=== PATIENT | female | born 1965 | race Caucasian/White ===

== ENCOUNTER → 2018-01-17 10:40 | Outpatient (POV) | payer SELFPAY ==
[2018-01-17 11:10] VITALS: BP 132/96; PULSE 91; RESP 18
--- NOTE | 2018-01-17 12:48 | HMH.PMCON ---
Assessment and Plan (1) Sacroiliitis Current visit: Yes Status: Chronic Category: Medical Code(s): M46.1 - Sacroiliitis, not elsewhere classified (2) Degenerative disc disease, lumbar Current visit: Yes Status: Chronic Category: Medical Code(s): M51.36 - Other intervertebral disc degeneration, lumbar region - Assessment and plan all Dx Assessment and Plan for all problems:: We will set the patient for bilateral SI joint injections. I believe that this would be beneficial. Patient is very active and would like to continue with her daily activities. Patient has had good relief with hip injections in the past. Patient is not deemed a surgical candidate at this time. I will follow-up with the patient after her SI joint injections. This note was dictated using voice recognition software and may contain errors or omissions HPI - Data of Consult Consult date: 01/17/18 Requesting Physician: Margaux Coles APRN Primary Care Provider: Jacquelyn Frances - Consult Narrative Reason for consult: Back pain and left leg pain History of present illness: Ms. Woodruff is a 52 year old female comes today for consultation in her low back pain and left hip pain. Patient rates her pain a 3 out of 10. Patient states is constant. She says it worsens with activity. IcyHot helps alleviate the pain. All movement increases the pain. Patient has been seen by neurosurgery where she was deemed not a surgical candidate. Patient is describing bilateral SI joint pain. Patient states that she has trouble sitting long periods of time. Patient has had 7 children patient has had a hip injection in the past and she states that this helped greatly. CC: Margaux Coles APRN [facility] History I have reviewed the patient's past medical history: Yes Medical History: Denies:: Cancer, Diabetes Mellitus Type 1, Diabetes Mellitus Type 2, MRSA Other Surgeries: Yes: Appendectomy, Other () Amputation: No Fractures: No - *Social History Alcohol Intake: never Occupational Status: other Household Members: spouse, children - Psychiatric History Expresses thoughts of harming self/others: None Suicide Plan Description: No Plan Review of Systems - Review of Systems ROS General: no recent weight change, no fever, no sleep disturbances Respiratory: no cough, no shortness of air, no recurring pulmonary infections Cardiovascular/Peripheral Vascular: No chest pain, No palpitations, no edema, no shortness of breath. Gastrointestinal: no incontinence, normal bowel movements reported Genitourinary: no incontinence Musculoskeletal: bilateral SI joint pain, low back pain Psychiatric: normal mood/ affect, Neurological: [denies weakness in extremities], [denies balance issues] Meds Allergies Allergy/AdvReac Type Severity Reaction Status Date / Time No Known Allergies Allergy Unverified 08/30/17 14:18 Objective Vital signs: Pulse Resp BP 91 H 18 132/96 01/17/18 11:10 01/17/18 11:10 01/17/18 11:10 Narrative: Physical Exam General: Alert and oriented x3, no acute distress, pleasant and cooperative, [on room air] Lungs: Resps E/U, Symmetrical chest expansion, Eyes: PERRL Musculoskeletal: Flexion and extension of lumbar spine somewhat guarded secondary to pain, deep tendon reflexes normal, strength in upper and lower extremities [5/5], slightly antalgic gait noted, positive Nirmal's test bilaterally, extreme point tenderness over bilateral SI joints Neurological: speech clear, fruit loader equal, no gross sensory deficits Opioid Risk Tool - Opioid Risk Tool-Female Family hx alcohol abuse: N Family hx illegal drugs: N Family hx rx drug abuse: N Personal hx alcohol abuse: N Personal hx illegal drugs: N Personal hx rx drug abuse: N Age: 45+ Hx of sexual abuse: N Mental health issues-ADD,OCD,Bipolar, etc: N Hx of depression: N Female Risk Score: 0
--- NOTE | 2018-01-17 12:51 | P.CONS_ITS ---
Assessment and Plan (1) Sacroiliitis Current visit: Yes Status: Chronic Category: Medical Code(s): M46.1 - Sacroiliitis, not elsewhere classified (2) Degenerative disc disease, lumbar Current visit: Yes Status: Chronic Category: Medical Code(s): M51.36 - Other intervertebral disc degeneration, lumbar region - Assessment and plan all Dx Assessment and Plan for all problems:: We will set the patient for bilateral SI joint injections. I believe that this would be beneficial. Patient is very active and would like to continue with her daily activities. Patient has had good relief with hip injections in the past. Patient is not deemed a surgical candidate at this time. I will follow- up with the patient after her SI joint injections. This note was dictated using voice recognition software and may contain errors or omissions HPI - Data of Consult Consult date: 01/17/18 Requesting Physician: Margaux Coles APRN Primary Care Provider: Jacquelyn Frances - Consult Narrative Reason for consult: Back pain and left leg pain History of present illness: Ms. Woodruff is a 52 year old female comes today for consultation in her low back pain and left hip pain. Patient rates her pain a 3 out of 10. Patient states is constant. She says it worsens with activity. IcyHot helps alleviate the pain. All movement increases the pain. Patient has been seen by neurosurgery where she was deemed not a surgical candidate. Patient is describing bilateral SI joint pain. Patient states that she has trouble sitting long periods of time. Patient has had 7 children patient has had a hip injection in the past and she states that this helped greatly. CC: Margaux Coles APRN [facility] History I have reviewed the patient's past medical history: Yes Medical History: Denies:: Cancer, Diabetes Mellitus Type 1, Diabetes Mellitus Type 2, MRSA Other Surgeries: Yes: Appendectomy, Other () Amputation: No Fractures: No - *Social History Alcohol Intake: never Occupational Status: other Household Members: spouse, children - Psychiatric History Expresses thoughts of harming self/others: None Suicide Plan Description: No Plan Review of Systems - Review of Systems ROS General: no recent weight change, no fever, no sleep disturbances Respiratory: no cough, no shortness of air, no recurring pulmonary infections Cardiovascular/Peripheral Vascular: No chest pain, No palpitations, no edema, no shortness of breath. Gastrointestinal: no incontinence, normal bowel movements reported Genitourinary: no incontinence Musculoskeletal: bilateral SI joint pain, low back pain Psychiatric: normal mood/ affect, Neurological: [denies weakness in extremities], [denies balance issues] Meds Allergies Allergy/AdvReac Type Severity Reaction Status Date / Time No Known Allergies Allergy Unverified 08/30/17 14:18 Objective Vital signs: Pulse Resp BP 91 H 18 132/96 01/17/18 11:10 01/17/18 11:10 01/17/18 11:10 Narrative: Physical Exam General: Alert and oriented x3, no acute distress, pleasant and cooperative, [ on room air] Lungs: Resps E/U, Symmetrical chest expansion, Eyes: PERRL Musculoskeletal: Flexion and extension of lumbar spine somewhat guarded secondary to pain, deep tendon reflexes normal, strength in upper and lower extremities [5/5], slightly antalgic gait noted, positive Fa
== END ==
PROVIDERS: PCP Family Medicine; Visit Provider Clinical Nurse Specialist Family Health
DX: M46.1 Sacroiliitis, not elsewhere classified (principal); M51.36 Other intervertebral disc degeneration, lumbar region
CPT/HCPCS: 99202

== ENCOUNTER → 2018-02-13 09:39 | Outpatient (POV) | payer SELFPAY ==
[2018-02-13 09:50] VITALS: BP 134/84; PULSE 86; RESP 18; O2SAT 98; BMI 25.0
--- NOTE | 2018-02-13 10:17 | HMH.PAINSOAP ---
[facility] Pain Management SOAP Note Subjective:: She is a pleasant 52-year-old white female who we are treating for bilateral hip pain. Patient is following up after bilateral SI joint injections. Patient states that a day or 2 after her injection she was 83% pain relief. Patient states she has not interested in repeating this at this time. Patient will like to take oral medication and anti-inflammatories for a few weeks to see if this helps. And and I discussed stretching along with an SI joint belt. Patient rates her pain a 6 out of 10 today. Patient states is worse when she is active. ROS General: no recent weight change, no fever, no sleep disturbances Respiratory: no cough, no shortness of air, no recurring pulmonary infections Cardiovascular/Peripheral Vascular: No chest pain, No palpitations, no edema, no shortness of breath. Gastrointestinal: no incontinence, normal bowel movements reported Genitourinary: no incontinence Musculoskeletal: SI joint pain Psychiatric: normal mood/ affect Neurological: [denies weakness in extremities], [denies balance issues] Objective:: Physical Exam General: Alert and oriented x3, no acute distress, pleasant and cooperative, [on room air] Lungs: Resps E/U, Symmetrical chest expansion, Eyes: PERRL Musculoskeletal: Flexion and extension of lumbar spine somewhat guarded secondary to pain, deep tendon reflexes normal, strength in upper and lower extremities [5/5], slightly antalgic gait noted, positive Nirmal's test bilaterally, extreme point tenderness over bilateral SI joints Neurological: speech clear, immigration case worker equal, no gross sensory deficits Assessment:: Sacroiliitis Plan:: We will call in a Medrol Dosepak for the patient. She will complete 5 days of steroids and then begin anti-inflammatories for 7 days. If patient wants we will call her in naproxen 500 mg twice daily. I will follow-up with this patient in 1 month and we will reassess her symptoms at that time. This note was dictated using voice recognition software and may contain errors or omissions
--- NOTE | 2018-02-13 10:21 | P.CONS_ITS ---
[facility] Pain Management SOAP Note Subjective:: She is a pleasant 52-year-old white female who we are treating for bilateral hip pain. Patient is following up after bilateral SI joint injections. Patient states that a day or 2 after her injection she was 83% pain relief. Patient states she has not interested in repeating this at this time. Patient will like to take oral medication and anti-inflammatories for a few weeks to see if this helps. And and I discussed stretching along with an SI joint belt. Patient rates her pain a 6 out of 10 today. Patient states is worse when she is active. ROS General: no recent weight change, no fever, no sleep disturbances Respiratory: no cough, no shortness of air, no recurring pulmonary infections Cardiovascular/Peripheral Vascular: No chest pain, No palpitations, no edema, no shortness of breath. Gastrointestinal: no incontinence, normal bowel movements reported Genitourinary: no incontinence Musculoskeletal: SI joint pain Psychiatric: normal mood/ affect Neurological: [denies weakness in extremities], [denies balance issues] Objective:: Physical Exam General: Alert and oriented x3, no acute distress, pleasant and cooperative, [ on room air] Lungs: Resps E/U, Symmetrical chest expansion, Eyes: PERRL Musculoskeletal: Flexion and extension of lumbar spine somewhat guarded secondary to pain, deep tendon reflexes normal, strength in upper and lower extremities [5/5], slightly antalgic gait noted, positive Nirmal's test bilaterally, extreme point tenderness over bilateral SI joints Neurological: speech clear, card lacer jacquard equal, no gross sensory deficits Assessment:: Sacroiliitis Plan:: We will call in a Medrol Dosepak for the patient. She will complete 5 days of steroids and then begin anti-inflammatories for 7 days. If patient wants we will call her in naproxen 500 mg twice daily. I will follow-up with this patient in 1 month and we will reassess her symptoms at that time. This note was dictated using voice recognition software and may contain errors or omissions
== END ==
PROVIDERS: PCP Family Medicine; Visit Provider Clinical Nurse Specialist Family Health
DX: M46.1 Sacroiliitis, not elsewhere classified (principal)
CPT/HCPCS: 99212

== ENCOUNTER → 2020-05-22 12:29 | Outpatient (CLI) | payer SELFPAY ==
--- NOTE | 2020-05-22 | CA_ITS ---
APPROVED REPORT Left Lower Extremity Venous Study for DVT. Squeezer Operator: MARAL Indications Lower Extremity Pain: Left Patient denies trauma. States she has hurting currently behind the knee. She says at times it feels tight. Medications She takes viatamins daily is only medicine. Vein Imaging CFV (L): compressive, spontaneous, phasic, augmentation FEM (L): compressive, spontaneous, phasic, augmentation POP (L): compressive, spontaneous, phasic, augmentation, PTV (L): Compressible GSV (L): compressive, spontaneous, phasic, augmentation SSV (L): Compressible Peroneals (L):Compressible GAS (L): Compressible Findings No evidence of DVT or superficial thrombophlebitis in the veins scanned of the left lower extremity. Conclusion No evidence of DVT or superficial thrombophlebitis in the veins scanned of the left lower extremity. Electronically signed by : Adrián Horowitz MD 05/22/2020 17:24:52
--- NOTE | 2020-05-22 12:45 | XR_ITS ---
PROCEDURE: XR KNEE LT 3V CLINICAL INDICATION: LT KNEE PAIN COMPARISON: No exams were available for comparison FINDINGS: No fracture or dislocation. No lytic or blastic change. There is normal mineralization. There is slight decrease in the joint space medially with minimal spurring of the patellofemoral joint. Other findings:None. IMPRESSION: Minimal osteoarthritic change Dictated by: Adrián Horowitz MD 05/22/2020 16:54 Adrián Horowitz MD in [place] 05/22/2020 16:54
== END ==
PROVIDERS: PCP Nurse Practitioner Family; Visit Provider Nurse Practitioner Family
DX: M25.562 Pain in left knee (principal)
CPT/HCPCS: 73562; 93971

== ENCOUNTER 2020-07-22 14:55 | Emergency (ER) | payer SELFPAY ==
--- NOTE | 2020-07-22 15:13 | XR_ITS ---
PROCEDURE: XR HAND RT MIN 3V CLINICAL INDICATION: fall Posttraumatic pain COMPARISON: No exams were available for comparison FINDINGS: No fracture or dislocation. No lytic or blastic change. There is normal mineralization. The joint spaces are well-preserved. No significant degenerative/arthritic changes. No erosive changes evident. Other findings:None. IMPRESSION: No acute findings. Dictated by: Adrián Horowitz MD 07/22/2020 16:08 Adrián Horowitz MD in [place] 07/22/2020 16:08
[2020-07-22 15:18] VITALS: BP 159/91; PULSE 82; RESP 18; TEMP 36.9; O2SAT 99; BMI 25.7
[2020-07-22 15:24] VITALS: BP 159/91; PULSE 91; RESP 18; TEMP 36.9; O2SAT 99
--- NOTE | 2020-07-22 16:04 | HMH.EDUTC ---
[facility] [place] Clinical Impression: Hand sprain Qualifiers: Encounter type: initial encounter Laterality: right Qualified Code(s): S63.91XA - Sprain of unspecified part of right wrist and hand, initial encounter Disposition: Home, Self-Care Condition on Discharge: Good Instructions: Sprain, How To Perform RICE (Rest, Ice, Compress, Elevate) Additional Instructions: *RICE, Rest the extremity, Ice 15-20 minutes 3-4 times daily, Compress- wear the angelo wrap as discussed as much as possible to help reduce swelling and pain, Elevate the extremity when at rest *Angelo wrap is for support and help control swelling, use it except in the shower. Be sure that is not to tight but not to loose either *Elevate when resting *Ibuprofen every 6-8 hours as needed for pain an inflammation. If need something more can take Tylenol in between doses of Ibuprofen to help Immediately follow up with your family doctor for new or worsening of symptoms, or no noticeable improvement over the next 3-5 days Follow up with Family Doctor if no improvement or any worsening of symptoms Return if needed Straight to ER if any life threatening symptoms Referrals: Irish Foster APRN [Primary Care Provider] - As needed Medical Decision Making - Edgar Inquiry Pt receiving controlled substance: No Edgar was queried for this patient: No Vital Signs: 07/22/20 15:18 07/22/20 15:24 Temperature 98.4 F 98.4 F Temperature Source Oral Pulse Rate 91 H Pulse Rate [Left] 82 Respiratory Rate 18 18 Blood Pressure 159/91 H Blood Pressure [Right Arm] 159/91 H Blood Pressure Mean [Right Arm] 113 Blood Pressure Source [Right Arm] Automatic Cuff Blood Pressure Position [Right Arm] Sitting 02 Sat by Pulse Oximetry 99 Oxygen Delivery Method Room Air Orders (Tests/Meds): ORDERS Category Date Time Status XR hand RT min 3V Stat Exams 07/22/20 15:13 Taken - Radiology Data #1 Image(s): Hand Image Reviewed: Yes I reviewed the patient's radiology image, Yes I reviewed the patient's radiology image w/the ED provider Preliminary Findings: No Fracture Seen [facility] [place] - General Stated complaint: a/o 07/22 right arm Time Seen by Provider: 07/22/20 16:04 Mode of Arrival: Ambulatory Source of Information: Patient Limitations: No Limitations Description of Symptoms (Recalled from Triage Doc. by RN): Right hand pain- Pt stated she fell aroud 1pm today and injured her right hand HEENT Symptoms (Recalled from RN notes): No Resp Symptoms (Recalled from RN notes): No Skin Symptoms (Recalled from RN notes): No MS Symptoms (Recalled from RN notes): Yes Functional Status (Recalled from RN notes): stable - History of Present Illness Provider Complaint: Patient states that she was standing on uneven ground when she slipped and fell and unsure if she may have stuck her hand out or if she may have landed on it but ever since has been having pain and swelling in her right hand States that pain is radiating across her hand and shooting into her fingers so she came in to get it checked - Related Data Home Medications Medication Instructions Recorded Confirmed No Known Home Medications 07/22/20 07/22/20 Allergies Allergy/AdvReac Type Severity Reaction Status Date / Time No Known Allergies Allergy Verified 10/02/18 16:51 - Worker's Comp Is this a Worker's Comp case?: No Is this an H Worker's Comp?: No Is this a Friendship Worker's Comp?: No H History - Hepatitis A Screen Drug use history?: No High risk sexual behaviors?: No History of sexually transmitted infection?: No Currently employed?: No Childcare worker?: No Do you have indoor plumbing?: Yes Do you have electricity?: Yes Attestation statement:: This patient has been screened for Hepatitis A risk factors. I have reviewed the patient's past medical history: Yes Medical History: Denies:: Cancer, Diabetes Mellitus Type 1, Diabetes Mellitus Type 2, Internal Pacemaker, MRSA,
== END 2020-07-22 16:52 | disposition home or self-care (01) ==
PROVIDERS: Emergency Provider Nurse Practitioner; PCP Nurse Practitioner Family
DX: S63.91XA Sprain of unspecified part of right wrist and hand, initial encounter (principal); W01.0XXA Fall on same level from slipping, tripping and stumbling without subsequent striking against object, initial encounter; Y92.017 Garden or yard in single-family (private) house as the place of occurrence of the external cause
CPT/HCPCS: 73130; 99201

== ENCOUNTER → 2020-11-14 08:22 | Outpatient (CLI) | payer SELFPAY ==
--- NOTE | 2020-11-14 08:33 | XR_ITS ---
PROCEDURE: XR WRIST RT MIN 3V CLINICAL INDICATION: BL wrist pain COMPARISON: No exams were available for comparison FINDINGS: No fracture or dislocation. No lytic or blastic change. There is normal mineralization. The joint spaces are well-preserved. No significant degenerative/arthritic changes. No erosive changes evident. Other findings:None. IMPRESSION: No acute findings. Dictated by: Adrián Horowitz MD 11/14/2020 09:55 Adrián Horowitz MD in [place] 11/14/2020 09:55
--- NOTE | 2020-11-14 08:33 | XR_ITS ---
PROCEDURE: XR WRIST LT MIN 3V CLINICAL INDICATION: BL wrist pain COMPARISON: No exams were available for comparison FINDINGS: No fracture or dislocation. No lytic or blastic change. There is normal mineralization. The joint spaces are well-preserved. No significant degenerative/arthritic changes. No erosive changes evident. Other findings:None. IMPRESSION: No acute findings. Dictated by: Adrián Horowitz MD 11/14/2020 09:54 Adrián Horowitz MD in [place] 11/14/2020 09:54
== END ==
PROVIDERS: PCP Family Medicine; Visit Provider Orthopaedic Surgery
DX: M25.531 Pain in right wrist (principal); M25.532 Pain in left wrist
CPT/HCPCS: 73110